=== PATIENT | female | born 1950 | race Caucasian/White ===

== ENCOUNTER 2018-10-02 12:07 | Emergency (ER) | payer MEDICARE, MEDICAID ==
[2018-10-02] MEDS ORDERED: CARBIDOPA LEVO PO (12:21)
[2018-10-02] MEDS ORDERED: ASPIR LOW81 MG PO (12:21)
[2018-10-02] MEDS ORDERED: MIRALAX17 GM PO (12:21)
[2018-10-02] MEDS ORDERED: DIGOXIN125 MCG PO (12:21)
[2018-10-02] MEDS ORDERED: LANSOPRAZOLE30 MG PO (12:21)
[2018-10-02] MEDS ORDERED: XOPENEX HF0.045 MG/A IH (12:22)
[2018-10-02] MEDS ORDERED: BISOPROLOL FUMA10 M1 PO (12:22)
[2018-10-02] MEDS ORDERED: TRULANCE3 MG PO (12:22)
[2018-10-02] MEDS ORDERED: MUPIROCIN2% TP (12:23)
[2018-10-02] MEDS ORDERED: AMANTADINE100 M1 PO (12:23)
[2018-10-02 12:48] LABS: EOS # 0.1 (0.04-0.40); EOS % 2.4 % (1.0-5.0); HEMATOCRIT 46.1 % (37.0-47.0); HEMOGLOBIN 15.2 g/dL (12.5-16.0); LYMPH# 1.5 (1.50-4.00); MEAN CELL VOLUME 90 fl (78-100); MEAN CORPUSCULAR HEMOGLOBIN 30 pg (27-31); MEAN CORPUSCULAR HGB CONC 33 g/dL (33-37); MEAN PLATELET VOLUME 10.2 fl (7.4-10.4); MONO # 0.4 (0.20-0.80); NEU # 3.5 (1.40-6.50); PLATELET COUNT 241 K/mm3 (130-400); RED BLOOD COUNT 5.14 M/mm3 (4.10-5.30); RED CELL DISTRIBUTION WIDTH 13.6 % (11.5-14.5); WHITE BLOOD COUNT 5.5 K/mm3 (4.8-10.8)
[2018-10-02] MEDS ORDERED: CLEOCIN HCL300 MG PO (12:57)
[2018-10-02 13:13] VITALS: BP 124/76
== END 2018-10-02 13:11 | disposition home or self-care (01) ==
LOC: ED 12:07
PROVIDERS: Nurse Practitioner Primary Care
DX: L03.114 Cellulitis of left upper limb (principal); G20 Parkinson's disease; Z79.82 Long term (current) use of aspirin

== ENCOUNTER 2023-05-10 11:03 | Outpatient (RCR) | payer MEDICARE, MEDICAID ==
[~2023-05-10 11:03] MED LIST: AMANTADINE100 M1 PO; ASPIR LOW81 MG PO; BISOPROLOL FUMA10 M1 PO; CARBIDOPA LEVO PO; CLEOCIN HCL300 MG PO; DIGOXIN125 MCG PO; LANSOPRAZOLE30 MG PO; MIRALAX17 GM PO; MUPIROCIN2% TP; TRULANCE3 MG PO; XOPENEX HF0.045 MG/A IH
== END 2023-05-30 09:52 | disposition home or self-care (01) ==
LOC: OPPGERO 11:03
DX: F33.1 Major depressive disorder, recurrent, moderate (principal); F41.9 Anxiety disorder, unspecified; F43.10 Post-traumatic stress disorder, unspecified